=== PATIENT | female | born 1945 | race Caucasian/White ===

== ENCOUNTER 2024-11-28 13:41 | Outpatient (CLI) | payer OTHER | END 2024-11-28 13:42 | disposition home or self-care (01) | LOC: CSHMAMMO 13:41 | PROVIDERS: ATTEND Family Medicine | DX: N63.25 Unspecified lump in the left breast, overlapping quadrants (principal); N63.21 Unspecified lump in the left breast, upper outer quadrant | CPT/HCPCS: 76642; 77066; G0279 ==